=== PATIENT | female | born 1985 ===

== ENCOUNTER 2018-02-08 14:26 | Emergency (ER) | payer OTHER ==
[2018-02-08 14:47] VITALS: TEMP 98.4; O2SAT 100
[2018-02-08] MEDS ORDERED: Sodium Chloride 0.9% 1,000 ML IV STA (15:33)
[2018-02-08] MEDS ORDERED: DiphenhydrAMINE 50 mg/ml Inj IVP STA (15:33)
[2018-02-08] MEDS ORDERED: DiphenhydrAMINE 50 mg/ml Inj ONE (15:41)
[2018-02-08 15:55] LABS: BASO # 0.1 K/uL (0.0-0.2); BASO % 0.8 % (0.0-2.0); EOS # 0.2 K/uL (0.0-0.7); EOS % 1.7 % (0.0-4.0); HEMOGLOBIN 12.4 g/dL (12.0-16.0); LYMPH # 2.1 K/uL (1.0-4.3); LYMPH % 23.2 % (20.0-40.0); MEAN CELL VOLUME 86.8 fl (81.0-99.0); MEAN CORPUSCULAR HEMOGLOBIN 29.8 pg (27.0-31.0); MEAN CORPUSCULAR HGB CONC 34.3 g/dL (33.0-37.0); MEAN PLATELET VOLUME 7.6 fl (7.2-11.7); MONO # 0.5 K/uL (0.0-0.8); MONO % 5.8 % (0.0-10.0); NEUT # 6.2 K/uL (1.8-7.0); NEUT % 68.5 % (50.0-75.0); RBC 4.16 Mil/uL (3.80-5.20); WHITE BLOOD COUNT 9.1 K/uL (4.8-10.8)
[2018-02-08 16:06] LABS: ALB/GLOB RATIO 1.5 (1.0-2.1); ALBUMIN 4.2 g/dL (3.5-5.0); ALT/SGPT 26 U/L (9-52); AST/SGOT 25 U/L (14-36); BLOOD UREA NITROGEN 11 mg/dl (7-17); CALCIUM 9.1 mg/dL (8.4-10.2); GFR NON-AFRICAN AMERICAN > 60
--- NOTE | 2018-02-08 18:22 | CT ---
Date of service: 02/08/2018 PROCEDURE: CT HEAD WITHOUT CONTRAST. HISTORY: headache COMPARISON: None available. TECHNIQUE: Axial computed tomography images were obtained through the head/brain without intravenous contrast. Radiation dose: Total exam DLP = 730.25 mGy-cm. This CT exam was performed using one or more of the following dose reduction techniques: Automated exposure control, adjustment of the mA and/or kV according to patient size, and/or use of iterative reconstruction technique. FINDINGS: HEMORRHAGE: No intracranial hemorrhage. BRAIN: No mass effect or edema. The jackson-white matter differentiation appears intact. VENTRICLES: No hydrocephalus. CALVARIUM: Unremarkable. PARANASAL SINUSES: Unremarkable as visualized. No significant inflammatory changes. MASTOID AIR CELLS: Unremarkable as visualized. No inflammatory changes. OTHER FINDINGS: None. IMPRESSION: No acute intracranial pathology identified.
[2018-02-08 18:36] VITALS: BP 122/68; PULSE 69
--- NOTE | 2018-02-08 18:53 | ED PDOC ---
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 states for the past 3 weeks she's had a gradual onset bitemporal squeezing band like headache associated with light and sound sensitivity. Headache is gradual in onset. States she's been having headaches for several years and this episode is the same with previous headaches. States she was admitted into [facility] for the same headache 8 years ago and was told it was likely her working nights. Also states she had another episode while living in [facility] 2 years ago and was evaluated by a neurologist who was giving her injections in the scalp and she was also taking oral medications but has since stopped as the headaches also stopped. Pt. states she began working nights again over the past month just prior to the onset of headaches. Has been taking Advil without relief. Denies head injury, fever, N/V, sudden onset of headache, chest pain, worst headache of life. - Risk Factors SAH Risk Factors: Nest Degree Relative(s) W/SAH <Jacky Ceja - Last Filed: 02/12/18 05:49> Time Seen by Provider: 02/08/18 15:09 Chief Complaint (Nursing): Headache Past Medical History Vital Signs: Last Vital Signs Temp 98.4 F 02/08/18 14:44 Pulse 69 02/08/18 19:17 Resp 18 02/08/18 19:17 BP 122/68 02/08/18 19:17 Pulse Ox 100 02/08/18 19:17 <Jolene Cooper - Last Filed: 02/11/18 13:02> Reviewed: Historical Data, Nursing Documentation, Vital Signs Vital Signs: Last Vital Signs Temp 98.4 F 02/08/18 14:44 Pulse 69 02/08/18 18:35 Resp 16 02/08/18 18:35 BP 122/68 02/08/18 18:35 Pulse Ox 100 02/08/18 18:35 - Surgical History Surgical History: Other surgeries: breast augmentation - Family History Family History: States: No Known Family Hx <Jacky Ceja - Last Filed: 02/12/18 05:49> - Home Medications Home Medications: Ambulatory Orders Medication Instructions Recorded Metoclopramide HCl [Reglan] 10 mg PO TID PRN #15 tablet 02/08/18 RX: Naproxen [Naprosyn] 500 mg PO BID PRN #14 tab 02/08/18 - Allergies Allergies/Adverse Reactions: Allergies Allergy/AdvReac Type Severity Reaction Status Date / Time No Known Allergies Allergy Verified 02/08/18 14:43 Review of Systems ROS Statement: Except As Marked, All Systems Reviewed And Found Negative Neurological: Positive for: Headache <Jacky Ceja Anna Marie - Last Filed: 02/12/18 05:49> Physical Exam - Physical Exam Appears: Positive for: Well, Non-toxic, No Acute Distress Head Exam: Positive for: ATRAUMATIC, NORMAL INSPECTION, NORMOCEPHALIC Skin: Positive for: Normal Color, Warm. Negative for: Rash Eye Exam: Positive for: EOMI, Normal appearance, PERRL ENT: Positive for: Normal ENT Inspection Neck: Positive for: Normal, Painless ROM Cardiovascular/Chest: Positive for: Regular Rate, Rhythm Respiratory: Positive for: Normal Breath Sounds Gastrointestinal/Abdominal: Positive for: Soft. Negative for: Tenderness Back: Negative for: L CVA Tenderness, R CVA Tenderness Neurologic/Psych: Positive for: Alert, Oriented, Gait (steady, unassisted). Negative for: Aphasia, Facial Droop <BrennaJacky E - Last Filed: 02/12/18 05:49> - Laboratory Results Result Diagrams: 02/08/18 15:52 02/08/18 15:52 <Jolene Cooper - Last Filed: 02/11/18 13:02> - Laboratory Results Result Diagrams: 02/08/18 15:52 02/08/18 15:52 Urine POC: Negative - ECG O2 Sat by Pulse Oximetry: 100 - Progress ED Course And Treament: Labs, CT head w/o contrast, IV NS bolus x 1, reglan 10mg IV, benadryl 50mg IV ordered. CT head w/o contrast: negative. Ellen still present at bedside and served as electrician's assistant. On re-evaluation, pt alert, awake. NAD. Smiling, happy. Reports headache has improved but is still slightly present and is requesting 1 more med before being discharged. Repeat neuro exam remains non-focal. Toradol 30mg IV ordered. <Jacky Ceja - Last Filed: 02/12/18 05:49> Disposition <Jolene Cooper - Last Filed: 02/11/18 13:02> - Patient ED Disposition Is Patient to be Admitted: No - Disposition Disposition: Routine/Home Disposition Time: 18:52 <Jacky Ceja - Last Filed: 02/12/18 05:49> - Clinical Impression Clinical Impression: Acute headache - Disposition Referrals: [facility] [Outside] Kiersten Albarran MD [Medical Doctor] - Condition: IMPROVED Additional Instructions: NAA DIAZ, thank you for letting us take care of you today. Your provider was Jolene Cooper MD and you were treated for HEADACHE. The emergency medical care you received today was directed at your acute symptoms. If you were prescribed any medication, please fill it and take as directed. It m ay take several days for your symptoms to resolve. Return to the Emergency Department if your symptoms worsen, do not improve, or if you have any other problems. Please contact your doctor or call one of the physicians/clinics you have been referred to that are listed on the Patient Visit Information form that is included in your discharge packet. Bring any paperwork you were given at discharge with you along with any medications you are taking to your follow up visit. Our treatment cannot replace ongoing medical care by a primary care provider outside of the emergency department. Thank you for allowing the [facility] team to be part of your care today. If you had an X-Ray or CT scan: A Radiologist will review the ED reading if any change in treatment is needed we will contact you. If you had a blood, urine, or wound culture: It will take several days for the results, if any change in treatment is needed we will contact you. If you had an STI test: It will take 48 hours for the results. Please call after 1 week if you have not heard back. Prescriptions: Metoclopramide HCl [Reglan] 10 mg PO TID PRN #15 tablet PRN Reason: nausea or vomiting RX: Naproxen [Naprosyn] 500 mg PO BID PRN #14 tab PRN Reason: Pain Instructions: Headache, Adult (DC) Forms: [facility] (Welsh) Print Language: GREEK Addendum Addendum: 02/11/18 13:03 reviewed PA chart. Agree with assessment and plan. <Jolene Cooper - Last Filed: 02/11/18 13:02>
[2018-02-08 19:18] VITALS: RESP 18
== END 2018-02-08 19:00 | disposition home or self-care (01) ==
LOC: H.ER 14:26
DX: R51 Headache (principal)
CPT/HCPCS: 70450; 80053; 81025; 85025; 96374; 96375; 99285; J1200; J2765; J7030